=== PATIENT | male | born 1950 | race Caucasian/White ===

== ENCOUNTER 2016-05-19 11:24 | Emergency (ER) | payer MEDICARE, OTHER ==
[~2016-05-19] VITALS: Ht 188 cm; Wt 97.0 kg
[~2016-05-19 11:24] MED LIST: AMLO5TAB96 PO; COZA100T PO; CYMB60CA PO; LIPI20TA PO; LORA1TAB PO; MIRT7.5T10 PO; SERO300T PO
[2016-05-19 11:26] VITALS: BP 136/98; PULSE 135; RESP 24; TEMP 97.3; O2SAT 97
--- NOTE | 2016-05-19 11:59 | PD ---
HPI Chief Complaint: Anxiety Time Seen by Provider: 11:55 Travel History International Travel<30 days: No Contact w/Intl Traveler<30days: No Traveled to known affect area: No History of Present Illness HPI Patient is 65-year-old male presenting to him or department for evaluation of an anxiety/panic attack. Patient states he's been out of his Ativan for 2 days and he cannot get it refilled for another 2 days. Patient stated he recently started what to do and he thinks this contributed in to his anxiety. Patient normally takes Ativan 2 mg once daily. He states that his anxiety has been exacerbated so he's had to take extra tablets resulting in a deficit. He denies any chest pain, shortness of breath, nausea, vomiting, abdominal pain, diarrhea. PFSH Past Medical History Anxiety: Yes Depression: Yes Cancer: Yes (prostate) High Cholesterol: Yes Diminished Hearing: No Headaches: Yes (MIGRAINES) Hypertension: Yes Inguinal Hernia: Yes Triglycerides - High: Yes Past Surgical History Abdominal Surgery: Yes (HERNIA REPAIR X 2) Eye Surgery: Yes (IOLI) Genitourinary Surgery: Yes (HEMORRHOID SURGER) Other Surgery: Yes (HEMORRHOIDECTOMY) Social History Alcohol Use: No Tobacco Use: No Substance Use: No Allergies-Medications (Allergen,Severity, Reaction): Coded Allergies: No Known Allergies (Unverified , 05/19/16) Reported Meds & Prescriptions Reported Meds & Active Scripts Active Reported Cozaar (Losartan Potassium) 100 Mg Tab 100 Mg PO DAILY Seroquel 300 mg (Quetiapine Fumarate) 300 Mg Tab 1 Tab PO HS Lorazepam 1 Mg Tab 1 Mg PO TID Lipitor 20 Mg Tab (Atorvastatin Calcium) 20 Mg Tab 1 Tab PO DAILY Norvasc (Amlodipine Besylate) 5 Mg Tab 5 Mg PO Remeron (Mirtazapine) 7.5 Mg Tab 15 Mg PO UNKNOWN DOSE Cymbalta (Duloxetine HCl) 60 Mg Cap 60 Mg PO DAILY Review of Systems Except as stated in HPI: all other systems reviewed are Neg Psychiatric: Positive: Anxiety Physical Exam Narrative GENERAL: Well-developed, well-nourished, alert male. Appears anxious , in no acute distress. SKIN: Warm and dry. HEAD: Atraumatic. Normocephalic. EYES: Pupils equal and round. No scleral icterus. No injection or drainage. ENT: No nasal bleeding or discharge. Mucous membranes pink and moist. NECK: Trachea midline. No JVD. CARDIOVASCULAR: Regular rate and rhythm. No murmur appreciated. RESPIRATORY: No accessory muscle use. Clear to auscultation. Breath sounds equal bilaterally. GASTROINTESTINAL: Abdomen soft, non-tender, nondistended. Hepatic and splenic margins not palpable. MUSCULOSKELETAL: No obvious deformities. No clubbing. No cyanosis. No edema. NEUROLOGICAL: Awake and alert. No obvious cranial nerve deficits. Motor grossly within normal limits. Normal speech. PSYCHIATRIC: Anxious mood and affect; insight and judgment normal. Data Data Last Documented VS Vital Signs Date Time Temp Pulse Resp B/P Pulse Ox O2 Delivery O2 Flow Rate FiO2 05/19/16 11:26 97.3 135 24 136/98 97 Orders Complete Blood Count With Diff (05/19/16 11:47) Comprehensive Metabolic Panel (05/19/16 11:47) Urinalysis - C+S If Indicated (05/19/16 11:47) Drug Screen, Random Urine (05/19/16 11:47) Alcohol (Ethanol) (05/19/16 11:47) Salicylates (Aspirin) (05/19/16 11:47) Tylenol (Acetaminophen) (05/19/16 11:47) Thyroid Stimulating Hormone (05/19/16 11:53) Hydroxyzine Pamoate (Vistaril) (05/19/16 12:00) Electrocardiogram (05/19/16 ) MDM Medical Decision Making Medical Screen Exam Complete: Yes Emergency Medical Condition: Yes Interpretation(s) Vital Signs Date Time Temp Pulse Resp B/P Pulse Ox O2 Delivery O2 Flow Rate FiO2 05/19/16 11:26 97.3 135 24 136/98 97 Differential Diagnosis Anxiety versus panic attack versus mood disorder versus substance abuse versus electrolyte abnormality versus cardiac arrhythmia versus other Narrative Course Patient is a 65-year-old male presenting to emergency department evaluation of anxiety and panic attacks. Patient has been using his Ativan more than the prescribed dose resulting in a deficit and he cannot have his medication refill for 2 more days. He has no physical complaints at this time. He denies any palpitations, chest pain, shortness of breath, dizziness. Labs ordered and pending. Patient's heart rate is 135, EKG will be obtained. Care patient will be transferred to provider in a medical bed when available. Lashell Morin May 19, 2016 11:58
[2016-05-19 12:44] LABS: AUTOMATED NEUTROPHIL # 3.6 TH/MM3 (1.8-7.7); BASOPHIL # 0.1 TH/MM3 (0-0.2); BASOPHIL % 1.4 % (0.0-2.0); EOSINOPHIL # 0.3 TH/MM3 (0-0.4); EOSINOPHIL % 4.5 % (0.0-4.0); HEMATOCRIT 41.6 % (39.0-51.0); HEMO FLAGS DIFF FINAL; LYMPH % 28.5 % (9.0-44.0); LYMPHOCYTE # 1.9 TH/MM3 (1.0-4.8); MEAN CELL VOLUME 92.7 FL (80.0-100.0); MEAN CORPUSCULAR HGB CONC 34.5 % (32.0-36.0); MONO % 10.8 % (0.0-8.0); NEUT % 54.8 % (16.0-70.0); PLATELET COUNT 308 TH/MM3 (150-450); RED BLOOD COUNT 4.49 MIL/MM3 (4.50-5.90); RED CELL DISTRIBUTION WIDTH 14.7 % (11.6-17.2); WHITE BLOOD COUNT 6.6 TH/MM3 (4.0-11.0)
--- NOTE | 2016-05-19 12:51 | PD ---
Physical Exam Time Seen by Provider: 12:51 Narrative 65-year-old male with a history of hypertension, depression and anxiety presents to the emergency department for evaluation of anxiety. Patient seen by provider in triage and workup was initiated at that time. Please see their documentation. The patient states that he feels as though he is having a panic attack right now. States he has a history of anxiety and depression and has been taking Latuda for his depression but feels that it exacerbates his anxiety symptoms he takes Ativan 2 mg daily with his Latuda. He has been out of his Ativan for 2 days and ask that this is what has triggered his panic attack. He denies any chest pain, shortness of breath, difficulty breathing, lightheadedness, dizziness, nausea, vomiting, abdominal pain. He complains of feeling as though his skin is crawling because he feels very anxious. States he has a panic attack like this about once a year. No other complaints. GENERAL: Well-nourished and well-developed pleasant patient anxious appearing but in no acute distress. SKIN: Warm and dry. HEAD: Normocephalic and atraumatic. EYES: No injection, drainage, or hyphema noted. PERRLA. EOMI. ENT: No nasal drainage noted. Oropharynx is clear. NECK: Supple and the trachea is midline. CARDIOVASCULAR: Regular rate and rhythm. RESPIRATORY: Breath sounds are equal bilaterally with no accessory muscle use, wheezing, rhonchi, or crackles. GASTROINTESTINAL: Abdomen is soft, non-tender, and nondistended. MUSCULOSKELETAL: No obvious deformities, swelling, cyanosis, or ecchymosis is present throughout the upper and lower extremities. Patient has full range of motion without any signs of neurovascular compromise. NEUROLOGICAL: Awake, alert, and oriented. Normal speech and gait. Cranial nerves are grossly intact. Data Data Last Documented VS Vital Signs Date Time Temp Pulse Resp B/P Pulse Ox O2 Delivery O2 Flow Rate FiO2 05/19/16 14:13 106 24 177/84 98 Room Air 05/19/16 11:26 97.3 Orders Complete Blood Count With Diff (05/19/16 11:47) Comprehensive Metabolic Panel (05/19/16 11:47) Urinalysis - C+S If Indicated (05/19/16 11:47) Drug Screen, Random Urine (05/19/16 11:47) Alcohol (Ethanol) (05/19/16 11:47) Salicylates (Aspirin) (05/19/16 11:47) Tylenol (Acetaminophen) (05/19/16 11:47) Thyroid Stimulating Hormone (05/19/16 11:53) Hydroxyzine Pamoate (Vistaril) (05/19/16 12:00) Electrocardiogram (05/19/16 ) Lorazepam Inj (Ativan Inj) (05/19/16 13:00) Labs Laboratory Tests Test 05/19/16 12:39 White Blood Count 6.6 TH/MM3 Red Blood Count 4.49 MIL/MM3 Hemoglobin 14.4 GM/DL Hematocrit 41.6 % Mean Corpuscular Volume 92.7 FL Mean Corpuscular Hemoglobin 32.0 PG Mean Corpuscular Hemoglobin 34.5 % Concent Red Cell Distribution Width 14.7 % Platelet Count 308 TH/MM3 Mean Platelet Volume 7.3 FL Neutrophils (%) (Auto) 54.8 % Lymphocytes (%) (Auto) 28.5 % Monocytes (%) (Auto) 10.8 % Eosinophils (%) (Auto) 4.5 % Basophils (%) (Auto) 1.4 % Neutrophils # (Auto) 3.6 TH/MM3 Lymphocytes # (Auto) 1.9 TH/MM3 Monocytes # (Auto) 0.7 TH/MM3 Eosinophils # (Auto) 0.3 TH/MM3 Basophils # (Auto) 0.1 TH/MM3 CBC Comment DIFF FINAL Differential Comment Sodium Level 137 MEQ/L Potassium Level 4.1 MEQ/L Chloride Level 105 MEQ/L Carbon Dioxide Level 21.4 MEQ/L Anion Gap 11 MEQ/L Blood Urea Nitrogen 20 MG/DL Creatinine 1.42 MG/DL Estimat Glomerular Filtration 50 ML/MIN Rate Random Glucose 98 MG/DL Calcium Level 8.7 MG/DL Total Bilirubin 0.5 MG/DL Aspartate Amino Transf 27 U/L (AST/SGOT) Alanine Aminotransferase 40 U/L (ALT/SGPT) Alkaline Phosphatase 94 U/L Total Protein 8.4 GM/DL Albumin 3.8 GM/DL Thyroid Stimulating Hormone 2.020 uIU/ML 3rd Gen Salicylates Level 2.2 MG/DL Acetaminophen Level LESS THAN 2.0 MCG/ML Ethyl Alcohol Level LESS THAN 3 MG/DL MDM Supervised Visit with KAMARI: No Differential Diagnosis Anxiety versus electrolyte abnormality versus panic attack versus benzodiazepine withdrawal Narrative Course 65-year-old male presents to the emergency department for evaluation of anxiety and panic attack. Patient is afebrile. He is tachycardic initially with a heart rate of 135 bpm. EKG shows sinus tachycardia with a ventricular rate of 114 bpm, no acute ST elevations or depressions. Physical examination is unremarkable. Labs were ordered and performed per protocol in triage. CBC is unremarkable. CMP shows slightly elevated creatinine of 1.42. Otherwise unremarkable. TSH is within normal limits. Salicylates, Tylenol and EtOH are unremarkable. Urine drug screen initially ordered by triage provider, patient unable to provide a urine sample. Patient has remained stable and without complaint while here in the emergency department. However he does come down to 100 bpm. I did look the patient up on [place] drug prescription monitoring program which shows he got a 30 day prescription of Ativan 1 mg only 20 days ago. He should not be out of this medication. He is stable for discharge and advised to follow-up with his PCP. I discussed the case with my attending physician Dr. Kaur who is aware of the patients history, physical examination findings, and treatment plan. Diagnosis Primary Impression: Anxiety Referrals: Primary Care Physician Patient Instructions: Anxiety (ED), General Instructions Additional Instruction: Follow-up with your Primary Care Physician. Return to the ED for any acute worsening of symptoms. Med/Other Pt SpecificInfo: No Change to Meds Disposition: 01 DISCHARGE HOME Condition: Stable Miley Batista May 19, 2016 12:51
[2016-05-19] MEDS ORDERED: LORazepam 2 MG/ML VIAL IV PUSH ONE (13:00)
[2016-05-19 13:13] LABS: ALKALINE PHOSPHATASE 94 U/L (45-117); TOTAL BILIRUBIN ADULT 0.5 MG/DL (0.2-1.0)
[2016-05-19 13:18] LABS: ALT (GPT) 40 U/L (12-78); ANION GAP 11 MEQ/L (5-15); AST (GOT) 27 U/L (15-37); BICARBONATE 21.4 MEQ/L (21.0-32.0); CHLORIDE 105 MEQ/L (98-107); GLOMERULAR FILTRATION RATE 50 ML/MIN (>89); POTASSIUM 4.1 MEQ/L (3.5-5.1); SODIUM (NA) 137 MEQ/L (136-145)
[2016-05-19 13:19] LABS: BLOOD UREA NITROGEN 20 MG/DL (7-18)
[2016-05-19 13:20] LABS: ACETAMINOPHEN LESS THAN 2.0 MCG/ML (10.0-30.0)
[2016-05-19 14:13] VITALS: BP 177/84; PULSE 106; RESP 24; O2SAT 98
[2016-05-19 15:14] VITALS: BP 165/82; PULSE 96; RESP 24; O2SAT 98
--- NOTE | 2016-05-20 22:39 | EKG ---
Date Performed: 05/19/2016 Time Performed: 11:58:57 PTAGE: 65 years EKG: SINUS TACHYCARDIA ABNORMAL RHYTHM ECG PREVIOUS TRACING : 03/19/2011 23.34 Compared to the previous tracing, no PVCs present DOCTOR: Michael Benson Interpretating Date/Time 05/20/2016 22:37:26
== END 2016-05-19 15:20 | disposition home or self-care (01) ==
LOC: NEPE 11:24
DX: F41.8 Other specified anxiety disorders (principal); R00.0 Tachycardia, unspecified
CPT/HCPCS: 80053; 80320; 84443; 85025; 93005; 96374; 99283; J2060; 80329; G0480